=== PATIENT | female | born 1950 | race Caucasian/White ===

== ENCOUNTER 2018-10-24 16:25 | Emergency (ER) | payer OTHER, MEDICARE ==
[~2018-10-24] VITALS: Ht 157.5 cm; Wt 61.2 kg
[2018-10-24 16:41] VITALS: BP_SYST 156
--- NOTE | 2018-10-24 16:50 | NUR ---
Patient to ER bed 6 to gown for evaluation. Side rails up. Report given to Shar MALDONADO.
--- NOTE | 2018-10-24 16:54 | NUR ---
Patient is awake, alert, and oriented x4. Patient's is at bedside. Patient states she went to her PCP due to rectal pain today and he sent her in to the ER for perirectal abcess. Patient is complaining of sharp rectal pain 10/10. Patient is on Plavix due to recent stroke.
[2018-10-24] MEDS ORDERED: LIDOCAINE MPF 1% 50 MG/5 ML AMP INJ ONE (17:30)
--- NOTE | 2018-10-24 17:35 | NUR ---
Dr. Tan at bedside to perform procedure.
--- NOTE | 2018-10-24 17:45 | NUR ---
Lidocaine not loaded in pyxsis. Pharmacy notified and they stated they would deliver.
[2018-10-24] MEDS ORDERED: LIDOCAINE/EPI 1% 1:100000 20 ML VIAL INJ ONE (18:01)
[2018-10-24 18:51] VITALS: BP_SYST 148
--- NOTE | 2018-10-24 18:51 | NUR ---
Note undone in EDM - 10/24/18 at 1852 by [email or web address] Patient given written and verbal discharge instructions and verbalizes understanding. ER discussed with patient the results and treatment provided. Patient in stable condition. ID arm band removed.Patient educated on pain management and to follow up with PMD. Pain Scale 0/10. Opportunity for questions provided and answered. Medication side effect fact sheet provided.
--- NOTE | 2018-10-24 18:51 | NUR ---
Patient given written and verbal discharge instructions and verbalizes understanding. ER MD discussed with patient the results and treatment provided. Patient in stable condition. ID arm band removed.Patient educated on pain management and to follow up with PMD. Pain Scale 0/10. Opportunity for questions provided and answered. Medication side effect fact sheet provided.
== END 2018-10-24 18:51 | disposition home or self-care (01) ==
LOC: SED 16:25
DX: K61.0 Anal abscess (principal); K21.9 Gastro-esophageal reflux disease without esophagitis; E07.9 Disorder of thyroid, unspecified; E78.00 Pure hypercholesterolemia, unspecified; Z90.49 Acquired absence of other specified parts of digestive tract; Z90.89 Acquired absence of other organs
CPT/HCPCS: 46050; 99284; J2001